=== PATIENT | female | born 1955 | race Hispanic/Latino ===

== ENCOUNTER 2021-03-19 07:03 | Day surgery (SDC) | payer OTHER ==
[2021-03-19] MEDS ORDERED: Ringers Lactate 1,000 ML IV ONE (07:12)
[2021-03-19] MEDS ORDERED: LIDOCAINE 1% MPF 5 ML VIAL ONE (07:52)
[2021-03-19] MEDS ORDERED: propofoL 200 MG/20 ML VIAL IV ONE (07:52)
--- NOTE | 2021-03-19 09:11 | ENDO RPT ---
[address], [address] COLONOSCOPY PROCEDURE REPORT EXAM DATE: 03/19/2021 PATIENT NAME: Medina Alfaro MR #: [id number] BIRTHDATE: 1955 ATTENDING: Will Gonzalez DR STATUS: outpatient PRECIPITATION EQUIPMENT TENDER: Tania Tam and Sunshine Cagle RN INDICATIONS: The patient is a 65 yr old Female here for a colonoscopy due to colon cancer screening PROCEDURE PERFORMED: Colonoscopy with biopsy - cold polypectomy MEDICATIONS: Per Anesthesia. ESTIMATED BLOOD LOSS: None CONSENT: The patient understands the risks and benefits of the procedure and understands that these risks include, but are not limited to: sedation, allergic reaction, infection, perforation and/or bleeding. Alternative means of evaluation and treatment include, among others: physical exam, x-rays, and/or surgical intervention. The patient elects to proceed with this endoscopic procedure. DESCRIPTION OF PROCEDURE: During intra-op preparation period all mechanical medical equipment was checked for proper function. Hand hygiene and appropriate measures for infection prevention was taken. Procedure, possible complications, alternatives including, but not limited to possibility of bleeding, perforation, tear, infection, sepsis, need for surgery, need for blood transfusion, were explained to the patient. After the risks, benefits and alternatives of the procedure were thoroughly explained, Informed consent was verified, confirmed and timeout was successfully executed by the treatment team. The patient was placed in the left lateral position. A digital rectal exam was performed and revealed internal hemorrhoids. After appropriate level of anesthesia, the scope was passed. The EC-[id number] ([id number]) and [id number] ([id number]) endoscope was introduced through the anus and advanced to the cecum, which was identified by both the appendix and ileocecal valve. The quality of the prep was fair. The instrument was then slowly withdrawn as the colon was fully examined. Scope withdrawal time was 12 minutes. COLON FINDINGS: A polypoid shaped and smooth pedunculated polyp ranging between 3-7mm in size was found in the sigmoid colon. A polypectomy was performed with a cold snare. The resection was complete, the polyp tissue was completely retrieved and sent to histology. Retroflexed views revealed no abnormalities. The scope was then completely withdrawn from the patient and the procedure terminated. ADVERSE EVENTS: There were no complications. IMPRESSIONS: 1. Pedunculated polyp ranging between 3-7mm in size was found in the sigmoid colon; polypectomy was performed with a cold snare 2. Internal hemorrhoids RECOMMENDATIONS: 1. follow-up: office 2 week(s) 2. fiber rich diet 3. await biopsy results 4. avoid NSAIDS for 2 weeks 5. Monitor for any evidence of rectal bleeding. 6. yearly hemoquant 7. hemorrhoidal hygiene 8. increase dietary water RECALL: for Colonoscopy, pending biopsy results. Will Gonzalez DR eSigned: Will Gonzalez DR 03/19/2021 9:11 AM cc: CPT CODES: ICD9 CODES: PATIENT NAME: Medina Alfaro MR#: [id number]
[2021-03-19 09:46] VITALS: BP 131/72; TEMP 97.1; O2SAT 99
== END 2021-03-19 10:00 | disposition home or self-care (01) ==
LOC: OR 07:03
PROVIDERS: ATTEND Surgery
PROC: 0DBN8ZX Excision of Sigmoid Colon, Via Natural or Artificial Opening Endoscopic, Diagnostic (ICD-10-PCS; principal; 2021-03-19 08:00)
DX: Z12.11 Encounter for screening for malignant neoplasm of colon (principal); U07.1 COVID-19
CPT/HCPCS: 88305; 45385; U0003; J2704; J7120